=== PATIENT | female | born 1995 | race Caucasian/White ===

== ENCOUNTER 2023-02-02 15:40 | Emergency (ER) | payer BC, OTHER ==
[2023-02-02 16:22] VITALS: BP 145/93; PULSE 93; O2SAT 95
--- NOTE | 2023-02-02 16:44 | ERPHSYRPT ---
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 and it splattered back at her on her left cheek, chin and left arm, pt does have a small scab on her chin and is unsure if it splattered on it or not Triage Nursing Assessment: Pt brought self to the ER, hypertensive, denies pain, pulses normal, cap refill normal, skin n/w/d, denies N&V, pt denies blood getting in her mouth or eyes, pt is at this time and has been informed of PEP medications and has declined them but has asked for a baseline blood draw for future reference, denies any other issues at this time Physician History: 27-year-old healthy female presented in the ER chief complaint of exposure 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 She immediately washed it. She does have couple of scabbed sores on the face. Patient not sure whether blood was on the scabbed area or not. Patient is sent in here for baseline lab work, unsure about source history of infectious disease, blood work is obtained on the source at present for further evaluation. She does use glasses and it was not in her eyes for sure. Discussed with patient about postexposure prophylaxis and risk of transmission which is very minimal but not 0. She opted to not go for it. She would follow- up with employee health clinic. Timing/Duration: today Associated Symptoms: denies symptoms Allergies/Adverse Reactions: No Known Drug Allergies Allergy (Verified 02/02/23 16:23) Home Medications: Buspirone HCl 30 mg PO DAILY 02/02/23 [History] Desvenlafaxine Succinate [Desvenlafaxine Succinate ER] 100 mg PO DAILY 02/02/23 [History] Metoprolol Tartrate 50 mg [Lopressor 50 MG] 50 mg PO BID 02/02/23 [History] Omeprazole 20 mg PO DAILY 02/02/23 [History] Hx Tetanus, Diphtheria Vaccination/Date Given: Yes Hx Influenza Vaccination/Date Given: Yes Hx Pneumococcal Vaccination/Date Given: No Immunizations Up to Date: Yes Travel Risk - International Travel Have you traveled outside of the country in past 3 weeks: No - Coronavirus Screening Are you exhibiting any of the following symptoms?: No Close contact with a COVID-19 positive Pt in past 14-21 Days: No - Vaccine Status Have you recieved a Covid-19 vaccination: Yes Technical Translator: Pfizer - Vaccination Dates Date of 2cond Vaccination (if applicable): 2020 - Review of Systems Constitutional: No Symptoms Ears, Nose, & Throat: No Symptoms Respiratory: No Symptoms Cardiac: No Symptoms Musculoskeletal: No Symptoms Neurological: No Symptoms Endocrine: No Symptoms Hematologic/Lymphatic: No Symptoms - Past Medical History Pertinent Past Medical History: Yes Cardiac History: Arrhythmia GI Medical History: GERD Psycho-Social History: Anxiety, Attention Deficit Disorder, Depression - Past Surgical History Past Surgical History: Yes Female Surgical History: Section Other Surgical History: c section x3. wisdom teeth - Social History Smoking Status: Never smoker Exposure to second hand smoke: No Drug Use: none Patient Lives Alone: No - Female History Hx Last Menstrual Period: no periods since giving Hx Now: No - Nursing Vital Signs Nursing Vital Signs: Initial Vital Signs Temperature 97.1 F 02/02/23 16:07 Pulse Rate 93 H 02/02/23 16:07 Blood Pressure 145/93 02/02/23 16:07 O2 Sat by Pulse Oximetry 95 02/02/23 16:07 Pain Scale Pain Intensity 0 - Physical Exam General Appearance: no apparent distress, alert Eye Exam: PERRL/EOMI Ears, Nose, Throat Exam: normal ENT inspection, pharynx normal, moist mucous membranes Neck Exam: normal inspection, non-tender, supple, full range of motion Respiratory Exam: normal breath sounds, lungs clear Cardiovascular Exam: regular rate/rhythm, normal heart sounds Gastrointestinal/Abdomen Exam: soft, normal bowel sounds Rectal Exam: deferred Neurologic Exam: alert, oriented x 3, cooperative Skin Exam: normal color SpO2 Interpretation: normal SpO2: 95 O2 Delivery: Room Air Ordered Tests: Active Orders 24 hr Category Date Time Status Wound Care STAT Care 02/02/23 16:25 Active - Progress Progress: unchanged Progress Note: 02/02/23 16:43 27-year-old healthy female presented in the ER chief complaint of exposure 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 She immediately washed it. She does have couple of scabbed sores on the face. Patient not sure whether blood was on the scabbed area or not. Patient is sent in here for baseline lab work, unsure about source history of infectious disease, blood work is obtained on the source at present for further evaluation. She does use glasses and it was not in her eyes for sure. Discussed with patient about postexposure prophylaxis and risk of transmission which is very minimal but not 0. She opted to not go for it. She would follow- up with employee health clinic. She will also follow-up on results from the source. - Departure Departure Disposition: Home Clinical Impression: Exposure to body fluid Condition: Stable Critical Care Time: No Instructions: Blood or Body Fluid Exposure, Post-Exposure Prophylaxis Additional Instructions: Follow-up with your primary care's/employee health for reevaluation in the next 1 to 2 days. Follow results from the source. Return to ER for any worsening.
[2023-02-04 16:55] LABS: HBsAg Screen Negative (Negative); HIV Screen 4th Generation wRfx Non Reactive (Non Reactive); Hep B Surface Ab, Quant 8.4 mIU/mL (Immunity>9.9); Hep C Virus Ab Non Reactive (Non Reactive)
== END 2023-02-02 17:01 | disposition home or self-care (01) ==
LOC: ED 15:40
DX: Z77.21 Contact with and (suspected) exposure to potentially hazardous body fluids (principal); Z20.6 Contact with and (suspected) exposure to human immunodeficiency virus [HIV]; Z20.5 Contact with and (suspected) exposure to viral hepatitis; Z79.899 Other long term (current) drug therapy
CPT/HCPCS: 36415; 86317; 87340; 87389; 99282; G0472; 86803

== ENCOUNTER 2023-07-17 08:15 | Day surgery (SDC) | payer BC, OTHER ==
[~2023-07-17 08:15] MED LIST: Lactated Ringers 1,000 ML IV ONE; Sensorcaine 0.25% 10 ML ONE
[2023-07-17] MEDS ORDERED: Lactated Ringers 1,000 ML IV SCH (08:30)
--- NOTE | 2023-07-17 08:32 | HP ---
DATE OF SURGERY: 07/17/2023 HISTORY OF PRESENT ILLNESS: The patient is a 27-year-old female nausea, upper abdominal pain started a month ago. PAST MEDICAL HISTORY: Depression, migraines, headaches. History of dysphagia in the past. History of some rhinitis, some heartburn in the past. PAST SURGICAL HISTORY: section. Martin tooth. MEDICATIONS: Paxil, buspirone, metoprolol. ALLERGIES: NKDA. FAMILY HISTORY: Negative in regards to this problem. SOCIAL HISTORY: No smoking or alcohol abuse. REVIEW OF SYSTEMS: Fourteen systems reviewed. No chest pain or palpitations. Other systems negative or noncontributory as above and per preadmission questionnaire. PHYSICAL EXAMINATION: Height 5'4". BMI 42. GENERAL: No acute distress. HEENT: Sclerae nonicteric. EOMI. Oral mucous membranes moist. NECK: No JVD. CHEST: Equal excursion, nonlabored breathing. CVS: Regular rate and rhythm. ABDOMEN: Soft. No peritoneal signs. EXTREMITIES: No cyanosis or edema. NEURO: Alert, oriented, moving extremities symmetrically. PSYCH: Appropriate mood and affect. SKIN: Dry. IMPRESSION: The study showed gallstones on ultrasound. Acute exacerbation chronic cholecystitis/cholelithiasis. I recommend cholecystectomy. Risks and benefits explained in detail including but not limited to bleeding or infection, risk of trocar injury or hernia, risk of bile leak, bile duct injury, retained stone or sludge possibly requiring further procedure either open or ERCP, other studies, endoscopy or other referral. Otherwise continue medications for heartburn, depression. Will proceed with outpatient laparoscopic cholecystectomy possible open under general anesthesia.
[2023-07-17 08:37] LABS: HCG URINE TEST NEGATIVE (NEGATIVE)
[2023-07-17] MEDS ORDERED: MEFOXIN 2 GM PREMIX** 2 GM/50 ML ML IV SCH (09:00)
== END 2023-07-17 09:05 | disposition home or self-care (01) ==
LOC: SDC 08:15
PROVIDERS: ATTEND Surgery
DX: Z53.8 Procedure and treatment not carried out for other reasons (principal)
CPT/HCPCS: 81025

== ENCOUNTER 2023-08-17 08:19 | Day surgery (SDC) | payer BC, OTHER ==
[2023-08-17] MEDS ORDERED: Lactated Ringers 1,000 ML IV ONE ×2 (08:20→08:38)
[2023-08-17] MEDS ORDERED: CEFAZOLIN 2 GM-D5W BAG** 2 GM/50 ML ML IV SCH (08:30)
[2023-08-17] MEDS ORDERED: Lactated Ringers 1,000 ML IV SCH (08:30)
[2023-08-17] MEDS ORDERED: MEFOXIN 2 GM PREMIX** 2 GM/50 ML ML IV ONE (08:38)
[2023-08-17 08:41] LABS: HCG URINE TEST NEGATIVE (NEGATIVE)
--- NOTE | 2023-08-17 08:44 | HP ---
DATE OF SURGERY: 08/17/2023 HISTORY OF PRESENT ILLNESS: The patient is a 27-year-old with some nausea and abdominal pain that started a month ago. She had work up that showed gallstones. PAST MEDICAL HISTORY: Depression, migraines. 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 She wears corrective lenses. She has had rhinitis and heartburn in the past. PAST SURGICAL HISTORY: Parker tooth. section. MEDICATIONS: Paxil, buspirone, metoprolol. ALLERGIES: NKDA. FAMILY HISTORY: Negative in regards to this problem. SOCIAL HISTORY: No smoking or alcohol abuse. REVIEW OF SYSTEMS: Twelve systems reviewed. No chest pain or palpitations. Other systems negative or noncontributory as above and per preadmission questionnaire. PHYSICAL EXAMINATION: Height 5'4". BMI 42.9. GENERAL: No acute distress. HEENT: Sclerae nonicteric. EOMI. Oral mucous membranes moist. NECK: No JVD. CHEST: Equal excursion, nonlabored breathing. CVS: Regular rate and rhythm. ABDOMEN: Soft, obese. EXTREMITIES: No significant edema. NEURO: Alert, oriented, moving extremities symmetrically. PSYCH: Appropriate mood and affect. SKIN: Dry. IMPRESSION: Acute exacerbation chronic cholecystitis, symptomatic cholelithiasis. I recommend cholecystectomy. Risks and benefits explained in detail including but not limited to bleeding or infection, risk of trocar injury or hernia, risk of bile leak, bile duct injury, retained stone or sludge possibly requiring further procedure either open or ERCP, general risk of anesthesia, deep venous thrombosis, pulmonary embolism, pneumonia. General risk of constipation and/or loose stools possibly even chronic in nature and possibly no improvement in preoperative symptoms possibly requiring further work up, studies, endoscopies, other studies or referrals. She understands. Will proceed with laparoscopic cholecystectomy possible open as an outpatient. Otherwise continue medications for heartburn and depression.
[2023-08-17] MEDS ORDERED: MEFOXIN 2 GM PREMIX** 2 GM/50 ML ML IV SCH (09:00)
[2023-08-17] MEDS ORDERED: Sensorcaine 0.25% 10 ML ONE (10:02)
[2023-08-17] MEDS ORDERED: Zemuron 100 MG/10 ML ONE (10:56)
[2023-08-17] MEDS ORDERED: SUBLIMAZE 100 MCG/2 ML ONE ×2 (10:56→12:03)
[2023-08-17] MEDS ORDERED: DIPRIVAN 200 MG/20 ML IV ONE (10:56)
[2023-08-17] MEDS ORDERED: Xylocaine-Mpf 2% 5 Ml Vial ONE (10:56)
[2023-08-17] MEDS ORDERED: BRIDION 200MG/2ML IV ONE (10:56)
[2023-08-17] MEDS ORDERED: Zofran 4 MG/2 ML VIAL ONE ×2 (10:56→12:03)
[2023-08-17] MEDS ORDERED: TORAdol 30 mg Injection ONE (10:56)
[2023-08-17] MEDS ORDERED: Decadron 4 MG INJ ONE (10:56)
[2023-08-17] MEDS ORDERED: Ephedrine Sulfate 50 MG/ML ONE (11:18)
[2023-08-17] MEDS ORDERED: ROBINUL ONE (11:27)
[2023-08-17] MEDS ORDERED: Hydromorphone 1 mg/ml Injection ONE (12:40)
--- NOTE | 2023-08-17 12:53 | OP ---
SURGERY DATE/TIME: 08/17/2023 1111 PREOPERATIVE DIAGNOSIS: Acute exacerbation of chronic cholecystitis, symptomatic cholelithiasis. POSTOPERATIVE DIAGNOSIS: Acute exacerbation of chronic cholecystitis, symptomatic cholelithiasis. PROCEDURE: Laparoscopic cholecystectomy. SURGEON: Dr. Palmer Etienne. ANESTHESIA: General. ESTIMATED BLOOD LOSS: Minimal. INDICATIONS: As noted above. Risks and benefits explained in detail but not limited to and consent obtained. DESCRIPTION OF PROCEDURE AND FINDINGS: The patient was taken to the operating room. General anesthesia induced. The patient's abdomen is prepped and draped in usual sterile fashion. After official time out and no disagreement with planned procedure, a transverse incision made in the supraumbilical area. Fascia grasped, pulled upward. Veress needle inserted and tested with saline. Pneumoperitoneum accomplished insufflating opening pressure of 0-15. A 5 mm bladeless port and camera were inserted without difficulty followed by two - 5 mm right upper quadrant ports and 11 mm in the epigastric port. The gallbladder is grasped. It had some chronic inflammatory reaction. Retracted laterally and upward. It is dissected posterior, lateral to anterior fashion slowly and carefully the cystic duct and infundibular junction carefully well skeletonized until the critical view was obtained both anteriorly and posteriorly. Once this is accomplished, the cystic duct and cystic artery were clipped x3 and divided in the usual fashion. The gallbladder is slowly and carefully dissected free from its dense attachments to the liver bed clipping additional oozing side branches off the cystic artery and cystic vein as necessary staying directly on the gallbladder wall. Just prior to releasing from final attachments to the anterior edge of the liver, the liver bed re-inspected. Clips noted in place in the cystic duct and cystic artery stumps. No signs of any active bleeding or bile leakage. It was felt there is no benefit of drain placement. Pneumoperitoneum decompressed. The 11 mm epigastric port fascia closed with puncture closure device with #1 Vicryl. Pneumoperitoneum decompressed. The wound irrigated out. Skin incision closed with 4-0 Vicryl. Steri-Strips and sterile dressing applied. 0.25% Marcaine local injected along the skin incision fascial defect. There were no immediate complications. Findings discussed with the family out in the waiting area. She was transferred to the recovery room in stable condition.
[2023-08-17 13:40] VITALS: RESP 16
[2023-08-17 13:55] VITALS: BP 144/86; PULSE 75; TEMP 97.3; O2SAT 96
== END 2023-08-17 14:08 | disposition home or self-care (01) ==
LOC: SDC 08:19
PROVIDERS: ATTEND Surgery
DX: K80.10 Calculus of gallbladder with chronic cholecystitis without obstruction (principal)
CPT/HCPCS: 47562; 81025; G0463; J0694; J1100; J1170; J1885; J2405; J2704; J3010

== ENCOUNTER 2023-09-01 16:53 | Emergency (ER) | payer BC, OTHER ==
[2023-09-01 17:17] VITALS: RESP 20; TEMP 97.2
--- NOTE | 2023-09-01 17:27 | ERPHSYRPT ---
- History of Present Illness Time Seen by Provider: 09/01/23 17:26 Source: patient Exam Limitations: no limitations Patient Subjective Stated Complaint: Pt states "I have one pupil larger than the other for the past month. I told my dr about it recently and he told me to come here because I started to have headaches on monday." Triage Nursing Assessment: Pt presented alert and oriented X 3, skin pwd. pt ambulate with an upright steady gait, able to speak in clear full sentences. Pt right pupil larger than the left. Physician History: This is an obese 27-year-old white female patient of Dr. Aquino who presents with pupil size disparity with her right pupil being larger than her left. In the past 3 days patient also complains of some mild global headache and she became concerned. Patient has a history of anxiety depression as well as hypertension. She arrives normotensive. She denies chest pain she denies head trauma. She has not had any visual changes. Timing/Duration: other (Present for over a month) Severity: mild Associated Symptoms: denies symptoms Allergies/Adverse Reactions: No Known Drug Allergies Allergy (Verified 08/17/23 08:50) Home Medications: Buspirone HCl 30 mg PO DAILY 02/02/23 [History] Metoprolol Tartrate 50 mg [Lopressor 50 MG] 50 mg PO BID 02/02/23 [History] PARoxetine HCL [Paroxetine HCl] 40 mg PO DAILY 05/13/23 [History] Hx Tetanus, Diphtheria Vaccination/Date Given: Yes Hx Influenza Vaccination/Date Given: Yes Hx Pneumococcal Vaccination/Date Given: No Immunizations Up to Date: Yes Travel Risk - International Travel Have you traveled outside of the country in past 3 weeks: No - Coronavirus Screening Are you exhibiting any of the following symptoms?: No Close contact with a COVID-19 positive Pt in past 14-21 Days: No - Vaccine Status Have you recieved a Covid-19 vaccination: Yes 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: [employer] - Vaccination Dates Date of 2cond Vaccination (if applicable): 2020 - Review of Systems Constitutional: No Symptoms Eyes: Other (Right pupil larger than left), No Eye Pain, No Photophobia, No Vision Changes ( pupil), No Foreign Body Sensation Ears, Nose, & Throat: No Symptoms Respiratory: No Symptoms Cardiac: No Symptoms Abdominal/Gastrointestinal: No Symptoms Genitourinary Symptoms: No Symptoms Musculoskeletal: No Symptoms Skin: No Symptoms Neurological: No Symptoms Psychological: No Symptoms Endocrine: No Symptoms Hematologic/Lymphatic: No Symptoms Immunological/Allergic: No Symptoms All Other Systems: Reviewed and Negative - Past Medical History Pertinent Past Medical History: Yes Neurological History: No Pertinent History ENT History: No Pertinent History Cardiac History: Arrhythmia Respiratory History: Asthma Endocrine Medical History: No Pertinent History Musculoskeletal History: No Pertinent History GI Medical History: GERD, Gallbladder Disease History: No Pertinent History Psycho-Social History: Anxiety, Attention Deficit Disorder, Depression Female Reproductive Disorders: No Pertinent History - Past Surgical History Past Surgical History: Yes Neuro Surgical History: No Pertinent History Cardiac: No Pertinent History Respiratory: No Pertinent History Gastrointestinal: Cholecystectomy Genitourinary: No Pertinent History Musculoskeletal: No Pertinent History Female Surgical History: Section Other Surgical History: c section x3. wisdom teeth - Social History Smoking Status: Never smoker Exposure to second hand smoke: Yes Drug Use: none Patient Lives Alone: No - Female History Hx Last Menstrual Period: 08/26/2023 Hx Now: No - Nursing Vital Signs Nursing Vital Signs: Initial Vital Signs Temperature 97.2 F 09/01/23 17:11 Pulse Rate 75 09/01/23 17:11 Respiratory Rate 20 09/01/23 17:11 Blood Pressure 131/62 09/01/23 17:11 O2 Sat by Pulse Oximetry 95 09/01/23 17:11 Pain Scale Pain Intensity 0 - Physical Exam General Appearance: no apparent distress, alert, anxiety, obese Eye Exam: other (Right pupil is larger than the left. The right pupil measured approximately 3 to 4 mm while the left diameter is approximately 2 to 3 mm.) Ears, Nose, Throat Exam: normal ENT inspection, moist mucous membranes Neck Exam: normal inspection, non-tender, supple, full range of motion Respiratory Exam: airway intact, No chest tenderness, No respiratory distress Gastrointestinal/Abdomen Exam: No tenderness Pelvic Exam: not done Rectal Exam: not done Back Exam: normal inspection, normal range of motion, No CVA tenderness, No vertebral tenderness Extremity Exam: normal inspection, normal range of motion, pelvis stable Neurologic Exam: alert, oriented x 3, cooperative, public policy associate II-XII nml as tested, normal mood/affect, nml cerebellar function, nml station & gait, sensation nml Skin Exam: normal color, warm, dry Lymphatic Exam: adenopathy SpO2 Interpretation: normal SpO2: 95 O2 Delivery: Room Air - Course Nursing assessment & vital signs reviewed: Yes Ordered Tests: Active Orders 24 hr Category Date Time Status HEAD WITHOUT CONTRAST [CT] Stat Exams 09/01/23 17:27 Completed - Progress Progress Note: 09/01/23 18:57 This patient's medical issue is 1 of low complexity. The level of complexity in the workup performed is based on review of the patient's past medical history, review of the patient's medication list, review of the patient's drug allergy list, history present illness and physical findings on examination. The workup in this patient includes CT scan of the head without contrast. The radiologist interpreted the CT scan of the head without contrast study. I reviewed the impression. The impression reads no acute intracranial abnormality. Counseled pt/family regarding: diagnosis, need for follow-up, rad results Medical Desision Making - Independent Historian Additional History obtained from: Family - Diagnostic Testing Diagnostic test were ordered, analyzed, and reviewed by me: Yes Radiological Interpretation: Reviewed by me, Teleradiologist Report - Risk of complications Minimal Risk: Minimal risk of morbidity - Departure Departure Disposition: Home Clinical Impression: Pupillary size inequality Condition: Stable Critical Care Time: No Referrals: SEA AQUINO DO [Primary Care Provider] - Follow up/PCP as directed Additional Instructions: Call your primary care provider on 09/04/2023, to make a follow-up appointment for further evaluation and management including MRI of the brain as an outpatient, consultation with neurology and/or ophthalmology if indicated.
--- NOTE | 2023-09-01 18:46 | XRAY ---
CLINICAL HISTORY:Pupil size disparity COMPARISON:None. TECHNIQUE:An axial non-contrast CT scan of the brain was performed from the skull base to the high parietal region. FINDINGS: No acute intracranial abnormality is present. No evidence of acute cortical infarction, hemorrhage, mass, or mass effect. No focal parenchymal abnormalities are demonstrated. Normal size and configuration of the cerebral ventricles. No abnormal extra-axial fluid collections are present. The posterior fossa is unremarkable. The skull base and calvarium are intact. The included portions of the paranasal sinuses and mastoid air cells are clear. IMPRESSION: 1. No acute intracranial abnormality is present. 2. Unremarkable non-enhanced CT study for the brain. Electronically Signed by: Lisa Gibson MD. (09/01/2023 18:42:16 EST)
[2023-09-01 19:01] VITALS: BP 120/69; PULSE 65; O2SAT 96
== END 2023-09-01 19:21 | disposition home or self-care (01) ==
LOC: ED 16:53
DX: H57.02 Anisocoria (principal); R51.9 Headache, unspecified; I10 Essential (primary) hypertension; Z79.899 Other long term (current) drug therapy
CPT/HCPCS: 70450; 99283